=== PATIENT | male | born 1945 | race Caucasian/White ===

== ENCOUNTER → 2016-06-05 | Outpatient (CLI) | payer BC | END | disposition home or self-care (01) | LOC: PCVCIMAG 15:44 | PROVIDERS: ATTEND Internal Medicine Cardiovascular Disease | DX: I65.23 Occlusion and stenosis of bilateral carotid arteries (principal); M17.10 Unilateral primary osteoarthritis, unspecified knee; R07.89 Other chest pain; K21.9 Gastro-esophageal reflux disease without esophagitis | CPT/HCPCS: 93880 ==

== ENCOUNTER → 2016-06-12 | Outpatient (CLI) | payer BC ==
[~2016-06-12] MED LIST: REGADENOSON 0.4 MG/5 ML DISP.SYRIN. IV ONE
== END | disposition home or self-care (01) ==
LOC: PCVCIMAG 07:37
PROVIDERS: ATTEND Internal Medicine Cardiovascular Disease
DX: Z01.810 Encounter for preprocedural cardiovascular examination (principal); R07.9 Chest pain, unspecified; I77.9 Disorder of arteries and arterioles, unspecified; G45.9 Transient cerebral ischemic attack, unspecified; K21.9 Gastro-esophageal reflux disease without esophagitis; R06.00 Dyspnea, unspecified
CPT/HCPCS: 78452; 93017; 93306; A9500; G0463; J2785

== ENCOUNTER → 2017-10-04 | Outpatient (CLI) | payer BC, OTHER | END | disposition home or self-care (01) | LOC: PCVCCLINIC 12:08 | PROVIDERS: ATTEND Internal Medicine | DX: I25.10 Atherosclerotic heart disease of native coronary artery without angina pectoris (principal); H53.8 Other visual disturbances; E78.00 Pure hypercholesterolemia, unspecified | CPT/HCPCS: 93005; G0463 ==

== ENCOUNTER → 2018-01-17 | Outpatient (CLI) | payer BC, OTHER ==
--- NOTE | 2018-01-17 09:17 | PCVCIMAG ---
APPROVED REPORT Study performed: 01/17/2018 07:57:54 EXAM: Comprehensive 2D, Doppler, and color-flow Echocardiogram Patient Location: Echo lab Status: routine BSA: 2.09 HR: 70 bpmBP: 122/72 mmHg Rhythm: NSR Other Information Study Quality: Adequate Risk Factors: Cardiac Risk Factors: Hyperlipidemia Indications Chest Pain aortic insufficiency, mitral regurgitation 2D Dimensions IVSd: 10.85 (7-11mm) LVDd: 49.15 mm PWd: 10.85 (7-11mm)Ascending Ao: 32.66 (22-36mm) LVDs: 32.82 (25-40mm) Left Atrium: 30.63 (27-40mm) Aortic Root: 31.04 mm LV Single Plane 4CH: 55.16 % LV Single Plane 2CH: 60.53 % Biplane EF: 58.8 % Volumes Left Atrial Volume (Systole) Single Plane 4CH: 67.37 mLSingle Plane 2CH: 65.17 mL LA ESV Index: 32.00 mL/m2 Aortic Valve AoV Peak Zack.: 1.38 m/s AO Peak Gr.: 7.65 mmHgLVOT Max P.82 mmHg LVOT Max V: 1.21 m/s AI Vmax: 4.38 m/s AI [place]: 2.44 m/s2 AI PHT: 520.54 ms Mitral Valve E/A Ratio: 1.1 MV Decel. Time: 260.13 ms MV E Max Zack.: 0.59 m/s MV A Zack.: 0.53 m/s IVRT: 110.73 ms Pulmonary Valve PV Peak Zack.: 0.77 m/sPV Peak Gr.: 2.36 mmHg Pulmonary Vein P Vein S: 0.33 m/sP Vein A: 0.39 m/s P Vein D: 0.47 m/sP Vein A Dur.: 141.9 msec P Vein S/D Ratio: 0.70 Tricuspid Valve TR Peak Zack.: 2.51 m/s TR Peak Gr.: 25.26 mmHg Left Ventricle The left ventricle is normal size. There is normal LV segmental wall motion. There is normal left ventricular wall thickness. Left ventricular systolic function is normal. The left ventricular ejection fraction is within the normal range. LVEF is 55%. Grade I - abnormal relaxation pattern. Right Ventricle The right ventricle is normal size. The right ventricular systolic function is normal. Atria The left atrium size is normal. The right atrium size is normal. Aortic Valve The aortic valve is normal in structure. Mild aortic regurgitation. There is no aortic valvular stenosis. Mitral Valve The mitral valve is normal in structure. Mild mitral regurgitation. No evidence of mitral valve stenosis. Tricuspid Valve The tricuspid valve is normal in structure. Mild tricuspid regurgitation with PAP of 32 mmHg. Pulmonic Valve The pulmonary valve is normal in structure. There is no pulmonic valvular regurgitation. Great Vessels The aortic root is normal in size. IVC is normal in size and collapses >50% with inspiration. Pericardium There is no pericardial effusion. There is no pleural effusion. <Conclusion> The left ventricle is normal size. There is normal left ventricular wall thickness. Left ventricular systolic function is normal. Grade I - abnormal relaxation pattern. The right ventricle is normal size. The left atrium size is normal. Mild aortic regurgitation. Mild mitral regurgitation. Mild tricuspid regurgitation with PAP of 32 mmHg.
== END | disposition home or self-care (01) ==
LOC: PCVCIMAG 08:03
PROVIDERS: ATTEND Internal Medicine Cardiovascular Disease
DX: I08.3 Combined rheumatic disorders of mitral, aortic and tricuspid valves (principal); G45.9 Transient cerebral ischemic attack, unspecified; I25.10 Atherosclerotic heart disease of native coronary artery without angina pectoris; E78.5 Hyperlipidemia, unspecified; E78.00 Pure hypercholesterolemia, unspecified; K21.9 Gastro-esophageal reflux disease without esophagitis; R60.9 Edema, unspecified; I77.9 Disorder of arteries and arterioles, unspecified; M19.90 Unspecified osteoarthritis, unspecified site; Z79.82 Long term (current) use of aspirin; Z72.89 Other problems related to lifestyle
CPT/HCPCS: 93306